=== PATIENT | male | born 1975 | race Caucasian/White ===

== ENCOUNTER 2017-01-21 00:28 | Emergency (ER) | payer OTHER ==
--- NOTE | 2017-01-21 03:13 | ED NURSING NOTES ---
Clinical Report - Nurses [facility] [address] [place] [address] 01/21/2017 0:29 Patient: LUIS CLINE TRIAGE Triage time 00:30 Jan 21 2017. Acuity: LEVEL 3. Chief Complaint: ABDOMINAL PAIN, NAUSEA and DIARRHEA. Alert. CELIA COMA SCORE: Celia Coma Scale: 15- eyes open spontaneously (4); best verbal response- oriented x 4 (5); best motor response- obeys commands (6). --00:46 Magno Higgins R.N. 00:34 01/21/17. BP: 168/110. HR: 80. RR: 16. O2 saturation: 97% on room air. Temp: 98.4 F (oral). Pain level now: 0/10. Additional comments: pain occurs every 12-17 minutes, then. --00:46 Magno Higgins R.N. Weight: 147.4 kg stated. Height/Length: 75 inches Per Patient. BMI: 40.6. --00:40 Magno Higgins R.N. Medications Lisinopril Oral 20 mg, 2x a day. --00:37 Magno Higgins R.N. Medication/allergy information source: the patient. --00:46 Magno Higgins R.N. Allergies No Known Drug Allergy. --00:37 Magno Higgins R.N. History Arrived by private vehicle. Historian: patient. Unaccompanied. Primary physician (none). ( Abdominal Pain associated with diarrhea. 3 days ago had a fever, cramping, diaphoresis, and chills.). Onset. (about 3 days ago after eating a Deli sandwich from [employer]). He has had fever, nausea, diarrhea and abdominal pain. Last oral intake by patient was (about 5 1/2 hours ago). 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 Symptoms did not improve after treatment. PAST MEDICAL HX: Immunizations: status is unknown. SOCIAL HX: Smoker- current status unknown (an occasional cigar). No alcohol use or drug use. No recent travel. ABUSE ASSESSMENT: No report of abuse. FALL RISK ASSESSMENT: Fall risk assessment completed. No fall risk identified. NUTRITIONAL RISK ASSESSMENT: The nutritional risk assessment revealed no deficiencies. FUNCTIONAL ASSESSMENT: Functional assessment: no impairments noted. LEARNING NEEDS ASSESSMENT: The learning needs assessment revealed no barriers. SKIN INTEGRITY ASSESSMENT: Skin integrity risk assessment completed. No skin integrity risk identified. --00:46 Magno Higgins R.N. PROBLEMS: Gastroesophageal Reflux Disease. Atypical Chest Pain. Hypertension. --00:40 Magno Higgins R.N. ADDITIONAL SURGERIES: Cholecystectomy. Knee Surgery. Leg bone spur removed. --00:40 Magno Higgins R.N. Interventions ID band on patient. To room. --00:46 Magno Higgins R.N. PHYSICAL ASSESSMENT Ambulatory to room. GENERAL / NEURO / PSYCH: Alert. Oriented X 4. HEENT: Mucous membranes are pink. RESPIRATORY: Respirations not labored. CVS: Cardiac rhythm: (RRR). Capillary refill less than 2 seconds. GI / : Abdomen soft and nontender. Bowel sounds within normal limits. SKIN: Skin is warm and dry. --00:47 Magno Higgins R.N. NURSING PROGRESS NOTES Patient gowned. Reassurance given. Patient identifiers checked. Call light placed in reach. Side rails up x 1. Bed placed in lowest position. Brakes of bed on. Patient ready for evaluation- chart flagged and ED physician notified. --00:47 Magno Higgins R.N. 00:36 01/21/2017 Site #1 started via IV in the right hand with an 20g angiocath, with aseptic technique and good blood return; one attempt. Blood drawn: rainbow set. Labeled in the presence of the patient and sent to the lab. Saline lock flushed with 10 mL saline. --00:51 Magno Higgins R.N. 01:17 01/21/17. Checked patient name, birthdate and medical record number: patient confirmed. Clean catch urine collected with return of teena-colored clear urine; odor is normal; sample sent to lab for urinalysis and culture. Specimen labeled in the presence of the patient. --01:47 Magno Higgins R.N. 01:32 01/21/2017 Started bag #1 1000 mL IV Fluids IV NS (Saline); at 999 mL/hr via site #1 via IV pump. Allergies verified and confirmed 5 rights. IV patency established. IV site checked: no pain, redness, or swelling. IV flushed thoroughly pre- and post-medication administration. --01:42 Magno Higgisn R.N. 01:37 01/21/2017 Zofran (Ondansetron HCl) IVP 4 mg given over 2 minute(s) via site #1. Allergies verified and confirmed 5 rights. IV patency established. IV site checked: no pain, redness, or swelling. IV flushed thoroughly pre- and post-medication administration. IVP given by RN. --01:42 Magno Higgins R.N. 01:38 01/21/2017 Bentyl (Dicyclomine HCl) PO Tablets 20 mg given. Allergies verified and confirmed 5 rights. --01:43 Magno Higgins R.N. 01:45 01/21/17. BP: 146/84. HR: 64. RR: 16. O2 saturation: 96% on room air. --01:48 Magno Higgins R.N. 02:37 01/21/2017 IV Fluids IV NS Discontinued: bag #1 completed. Total amount infused: 1000 mL. IV patency established. IV site checked: no pain, redness, or swelling. IV flushed thoroughly. --02:37 Vianca Gomes 03:30 01/21/17. BP: 150/86. HR: 60. RR: 16. O2 saturation: 99% on room air. Temp: 99 F. --03:36 Magno Higgins R.N. DISPOSITION / DISCHARGE 03:45 01/21/17. BP: 155/80. HR: 65. RR: 20. O2 saturation: 98% on room air. Temp: 98.6 F (oral). Pain level now: 0/10. --04:47 Vianca Gomes 03:45 01/21/2017 Site #1 removed upon discharge. Catheter intact. Bandaid applied. --04:47 Vianca Gomes 03:47 01/21/17. Condition at departure: stable. The goals identified in the patient's plan of care were met. No learning barriers present. Discharge instructions provided and reviewed with the patient. Reviewed medication(s) side effects, precautions, dosing and course information. Prescription(s) given to the patient. Reviewed need for increased fluid intake. Patient verbalized understanding. Written instructions provided in Khmer. ( Follow up with your PCP in two days. [facility] contact information provided. Increase fluids and rest until you feel better. Eat a soft bland diet until your stomach has settled. Return if your pain increases despite use of medications. Patient verbalized understanding and had no additional questions at this time.). The patient was discharged by the physician. He was discharged home and unaccompanied at time of discharge. He left the Emergency Department ambulatory and via private vehicle. Patient driving. FALL RISK ASSESSMENT: Fall risk assessment completed. No fall risk identified. --04:47 Vianca Gomes. Locked/Released at 01/21/2017 4:47 by Vianca Gomes,
--- NOTE | 2017-01-21 03:13 | ED ORDER SUMMARY ---
..... Patient: LUIS CLINE OrderSheet [facility] VisitID: [id number] [address] [place] [address] 41y, M Registration Date/Time: 01/21/2017 ORDER SHEET Weight: 147.4 kg (stated) Allergies: No Known Drug Allergy GENERAL ORDERS: CBC w Diff Urgent (01:01/21/2017 Felicia Malik) (Ack 1:23 ALawrence ER Tech1) (1:43 JRomanelli R.N.) CMP Urgent (01:01/21/2017 Felicia Malik) (Ack 1:23 ALawrence ER Tech1) (1:43 JRomanelli R.N.) UA-Culture if indicated Urgent (:01/21/2017 Felicia Malik) (Ack 1:23 ALawrence ER Tech1) (1:43 JRomanelli R.N.) Amylase Urgent (01:01/21/2017 Felicia Malik) (Ack 1:23 ALawrence ER Tech1) (1:43 JRomanelli R.N.) Lipase Urgent (01:01/21/2017 Felicia Mailk) (Ack 1:23 ALawrence ER Tech1) (1:43 JRomanelli R.N.) CT Abd/Pel wo Cont Urgent (01:54 01/21/2017 Felicia Malik) (Ack 1:55 ALawrence ER Tech1) (2:15 RFay) MEDICATION ORDERS: Bentyl PO 20 mg (NOW) (01:01/21/2017 Felicia Malik) (1:43 JRomanelli R.N.) IV FLUIDS: IV Saline Lock (00:50 01/21/2017 Greer R.N. verbal order read back to Felicia Malik) (0:51 omanelli R.N.) IV NS : initial bolus none -, then 1000 mL/hr for X1 (NOW) (01:01/21/2017 Felicia Malik) (1:42 omanelli R.N.) Zofran IV 4 mg (NOW) (01:01/21/2017 Felicia Malik) (1:42 Greer Boudreaux) ORDER SHEET NOTES: [Electronically signed by Juan Manuel Pappas Dr. (03:27 01/21/2017)] [Electronically signed by Vianca Gomes (04:47 01/21/2017)] [Electronically locked/signed by Vianca Gomes (04:47 01/21/2017)]
--- NOTE | 2017-01-21 03:13 | ED CLINICAL REPORT ---
Clinical Report - Physicians/Mid Levels [facility] [address] [place] [address] 01/21/2017 0:29 Patient: LUIS CLINE Time Seen: 00:35; initial patient contact. Arrived- By private vehicle. Historian- patient. HISTORY OF PRESENT ILLNESS Chief Complaint: ABDOMINAL PAIN. It is described as cramping. No radiation. It is described as generalized in location. This started about 2 days ago. The patient has had nausea, loss of appetite, vomiting and diarrhea. REVIEW OF SYSTEMS No constipation, difficulty with urination or fever. Last bowel movement: recently. He has had chills. All systems otherwise negative, except as recorded above. PAST HISTORY Hypertension. Cholecystectomy. Knee Surgery. Leg bone spur removed. SOCIAL HISTORY Never smoker. Occasional alcohol use. No drug use. ADDITIONAL NOTES The nursing notes have been reviewed. PHYSICAL EXAM Vital Signs: 01/21/2017 00:34 BP: 168/110. HR: 80. RR: 16. O2 saturation: 97%. Temp: 98.4 F. Pain level now: 0/10. Have been reviewed. Hypertensive. Heart rate normal. Respiratory rate normal. Temperature normal. Oxygen saturation normal. Appearance: Alert. Oriented X3. Appears to be in pain. Eyes: Eyes normal inspection. ENT: Dry mucous membranes present. CVS: Normal heart rate and rhythm. Heart sounds normal. Respiratory: No respiratory distress. Breath sounds normal. Abdomen: Soft. Moderate tenderness diffusely. No guarding, rebound tenderness or Yanes's, obturator or psoas sign present. Bowel sounds normal. No organomegaly. No mass. Back: Normal inspection. No CVA tenderness. Skin: Skin warm and dry. Normal skin color. No rash. Extremities: No lower extremity edema. Neuro: Oriented X 3. LABS, X-RAYS, AND EKG Abdominal CT: Mild to moderate colitis of the ascending and transverse colon. Study type: renal stone evaluation. Abdominal CT performed without contrast. The study was independently viewed by me, interpreted by the radiologist and discussed with the radiologist. Prior studies were not available for comparison. Laboratory Tests: UA-Culture if indicated: (DIMITRI: 01/21/2017 00:01) ( [facility] [place] 01/21/2017 01:21) Final results Test Result Flag Units (Reference) URINE COLOR YELLOW URINE APPEARANCE CLEAR URINE GLUCOSE NEGATIVE (NEGATIVE) URINE BILIRUBIN NEGATIVE (NEGATIVE) URINE KETONE NEGATIVE (NEGATIVE) URINE SPECIFIC GRAVITY >= 1.030 (1.010-1.030) URINE PH 6.0 (5.0-8.0) URINE PROTEIN TRACE (NEGATIVE) URINE UROBILINOGEN 0.2 EU/dL (0.2-1.0) URINE NITRITE NEGATIVE (NEGATIVE) URINE BLOOD 1+ (NEGATIVE) URINE LEUK ESTERASE NEGATIVE (NEGATIVE) URINE RBC 1-3 rbc/hpf (0-1) URINE WBC 0-1 wbc/hpf (0-1) URINE EPITHELIAL CELLS NONE SEEN EPI/hpf (0-5) URINE BACTERIA NONE SEEN (NONE SEEN) URINE COMMENT CULT NOT INDICATED CALCIUM OXALATE CRYSTALS: 5-10/HPFURINE CULTURES ARE SET-UP BASED ON THE FOLLOWING CRITERIA:POSITIVE NITRITEPOSITIVE LEUKOCYTE ESTERASEGREATER THAN 10 WHITE BLOOD CELLSMODERATE (2+) OR GREATER BACTERIA CBC w Diff: (DIMITRI: 01/21/2017 00:40) ( [facility] [place] 01/21/2017 01:11) Final results Test Result Flag Units (Reference) WHITE BLOOD COUNT 10.5 K/uL (4.5-11.5) RED BLOOD COUNT 4.76 M/uL (4.50-5.90) HEMOGLOBIN 14.3 gm/dL (13.5-17.5) HEMATOCRIT 42.2 % (41.0-53.0) MEAN CELL VOLUME 89 fL (80-100) MEAN CORPUSCULAR HGB 30 pg (26-34) MEAN CORPUSCULAR HGB CONC 34 g/dL (31-37) RED CELL DISTRIBUTION WIDTH 13.5 % (11.6-14.8) PLATELET COUNT 260 K/uL (150-400) NEUTROPHIL % 59.7 % (50-75) LYMPH % 27.7 % (25-40) MONO % 8.7 % (3-14) EOSINOPHIL % 3.6 % (0-4) BASOPHIL % 0.3 % (0-2) CMP: (DIMITRI: 01/21/2017 00:40) ( [facility] 01/21/2017 01:22) Final results Test Result Flag Units (Reference) GLUCOSE 95 mg/dL (70-110) BUN 13 mg/dL (7-18) CREATININE 0.9 mg/dL (0.6-1.3) Estimated GFR >60 mL/min Estimated GFR- >60 mL/min Note: Persistent reduction over 3 months in eGFR<60 mL/min/1.73 m2 defines CKD. Patients with eGFR values>=60 mL/min/1.73 m2 may also have CKD if evidence ofpersistent proteinuria. Additional information may be foundat www.kidney.org. SODIUM 135 L mmol/L (136-145) POTASSIUM 3.5 mmol/L (3.5-5.1) CHLORIDE 102 mmol/L (98-107) CARBON DIOXIDE 26 mmol/L (21-32) CALCIUM 8.4 L mg/dL (8.5-10.1) TOTAL PROTEIN 7.3 g/dL (6.4-8.2) ALBUMIN 3.5 g/dL (3.3-5.0) BILIRUBIN, TOTAL 0.5 mg/dL (0.0-1.0) ALKALINE PHOSPHATASE 54 U/L (46-116) AST (SGOT) 24 U/L (15-37) ALT (SGPT) 37 U/L (12-78) LIPASE 183 U/L (73-393) AMYLASE 38 U/L (25-115) . PROGRESS AND PROCEDURES Disposition: Discharged home in good and improved condition. Condition: good. CLINICAL IMPRESSION Acute infectious colitis. No ischemic colitis. INSTRUCTIONS Do not work today. Drink plenty of fluids until better. (Gatoraid/Poweraid). Your Current Medications: CONTINUE TAKING THE FOLLOWING MEDICATIONS: Lisinopril Oral : 20 mg 2x a day. Prescription Medications: Hydrocodone/APAP 5mg / 325mg: take 1 orally every 6 hours as needed for pain. Dispense ten (10). No refill. Zofran (orally disintegrating tablets) 4 mg: take 1 orally every 6 hours as needed for nausea and vomiting. Dispense ten (10). No refill. Substitution is permissible. Bentyl 20 mg tablets: take 1 orally every 6 hours as needed for abdominal cramps or abdominal discomfort. Dispense thirty (30). No refill. Substitution is permissible. Follow-up: Follow up with your doctor in about two days. Call for an appointment. Blood pressure screening was not performed during this visit because the patient has an active diagnosis of hypertension. (Electronically signed by Juan Manuel Pappas Dr. 01/21/2017 3:27)
--- NOTE | 2017-01-21 03:13 | ED ORDER SUMMARY ---
..... Patient: LUIS CLINE OrderSheet [facility] VisitID: [id number] [address] [place] [address] 41y, M Registration Date/Time: 01/21/2017 ORDER SHEET Weight: 147.4 kg (stated) Allergies: No Known Drug Allergy GENERAL ORDERS: CBC w Diff Urgent (01:01/21/2017 Felicia Malik) (Ack 1:23 ALawrence ER Tech1) (1:43 JRomanelli R.N.) CMP Urgent (01:01/21/2017 Felicia Malik) (Ack 1:23 ALawrence ER Tech1) (1:43 JRomanelli R.N.) UA-Culture if indicated Urgent (:01/21/2017 Felicia Malik) (Ack 1:23 ALawrence ER Tech1) (1:43 JRomanelli R.N.) Amylase Urgent (01:01/21/2017 Felicia Malik) (Ack 1:23 ALawrence ER Tech1) (1:43 JRomanelli R.N.) Lipase Urgent (01:01/21/2017 Felicia Malik) (Ack 1:23 ALawrence ER Tech1) (1:43 JRomanelli R.N.) CT Abd/Pel wo Cont Urgent (01:54 01/21/2017 Felicia Malik) (Ack 1:55 ALawrence ER Tech1) (2:15 RFay) MEDICATION ORDERS: Bentyl PO 20 mg (NOW) (01:01/21/2017 Felicia Malik) (1:43 JRomanelli R.N.) IV FLUIDS: IV Saline Lock (00:50 01/21/2017 Greer R.N. verbal order read back to Felicia Malik) (0:51 omanelli R.N.) IV NS : initial bolus none -, then 1000 mL/hr for X1 (NOW) (01:01/21/2017 Felicia Malik) (1:42 omanelli R.N.) Zofran IV 4 mg (NOW) (01:01/21/2017 Felicia Malik) (1:42 Greer Boudreaux) ORDER SHEET NOTES: [Electronically signed by Juan Manuel Pappas Dr. (03:27 01/21/2017)] [Electronically signed by Vianca Gomes (04:47 01/21/2017)] [Electronically locked/signed by Vianca Gomes (04:47 01/21/2017)]
--- NOTE | 2017-01-21 04:48 | ED DISCHARGE INSTRUCTIONS ---
Patient: LUIS CLINE General Instructions [facility] VisitID: [id number] [place] [address] 41y, M Registration Date/Time: 01/21/2017 Acute infectious colitis. No ischemic colitis. INSTRUCTIONS Do not work today. Drink plenty of fluids until better. (Gatoraid/Poweraid). Your Current Medications: CONTINUE TAKING THE FOLLOWING MEDICATIONS: Lisinopril Oral : 20 mg 2x a day. Prescription Medications: Hydrocodone/APAP 5mg / 325mg: take 1 orally every 6 hours as needed for pain. Dispense ten (10). No refill. Zofran (orally disintegrating tablets) 4 mg: take 1 orally every 6 hours as needed for nausea and vomiting. Dispense ten (10). No refill. Substitution is permissible. Bentyl 20 mg tablets: take 1 orally every 6 hours as needed for abdominal cramps or abdominal discomfort. Dispense thirty (30). No refill. Substitution is permissible. Follow-up: Follow up with your doctor in about two days. Call for an appointment. Blood pressure screening was not performed during this visit because the patient has an active diagnosis of hypertension. ADDITIONAL INFORMATION Hydrocodone Bitartrate, Acetaminophen Oral tablet What is this medicine? ACETAMINOPHEN; HYDROCODONE (a set a DENNY sunshine fen; magalie droe KOE done) is a pain reliever. It is used to treat mild to moderate pain. How should I use this medicine? Take this medicine by mouth. Swallow it with a full glass of water. Follow the directions on the prescription label. If the medicine upsets your stomach, take the medicine with food or milk. Do not take more than you are told to take. Talk to your interventional radiology rn regarding the use of this medicine in children. This medicine is not approved for use in children. What side effects may I notice from receiving this medicine? Side effects that you should report to your doctor or health child care center administrator as soon as possible: allergic reactions like skin rash, itching or hives, swelling of the face, lips, or tongue breathing problems confusion feeling faint or lightheaded, falls stomach pain yellowing of the eyes or skin Side effects that usually do not require medical attention (report to your doctor or health child care center administrator if they continue or are bothersome): nausea, vomiting stomach upset What may interact with this medicine? alcohol antihistamines isoniazid medicines for depression, anxiety, or psychotic disturbances medicines for sleep muscle relaxants naltrexone narcotic medicines (opiates) for pain phenobarbital ritonavir tramadol What if I miss a dose? If you miss a dose, take it as soon as you can. If it is almost time for your next dose, take only that dose. Do not take double or extra doses. Where should I keep my medicine? Keep out of the reach of children. This medicine can be abused. Keep your medicine in a safe place to protect it from theft. Do not share this medicine with anyone. Selling or giving away this medicine is dangerous and against the law. Store at room temperature between 15 and 30 degrees C (59 and 86 degrees F). Protect from light. Keep container tightly closed. Throw away any unused medicine after the expiration date. Discard unused medicine and used packaging carefully. Pets and children can be harmed if they find used or lost packages. What should I tell my health care provider before I take this medicine? They need to know if you have any of these conditions: brain tumor Crohn's disease, inflammatory bowel disease, or ulcerative colitis drink more than 3 alcohol-containing drinks per day drug abuse or addiction head injury heart or circulation problems kidney disease or problems going to the bathroom liver disease lung disease, asthma, or breathing problems an unusual or allergic reaction to acetaminophen, hydrocodone, other opioid analgesics, other medicines, foods, dyes, or preservatives or trying to get breast-feeding What should I watch for while using this medicine? Tell your doctor or health child care center administrator if your pain does not go away, if it gets worse, or if you have new or a different type of pain. You may develop tolerance to the medicine. Tolerance means that you will need a higher dose of the medicine for pain relief. Tolerance is normal and is expected if you take the medicine for a long time. Do not suddenly stop taking your medicine because you may develop a severe reaction. Your body becomes used to the medicine. This does NOT mean you are addicted. Addiction is a behavior related to getting and using a drug for a non-medical reason. If you have pain, you have a medical reason to take pain medicine. Your doctor will tell you how much medicine to take. If your doctor wants you to stop the medicine, the dose will be slowly lowered over time to avoid any side effects. You may get drowsy or dizzy when you first start taking the medicine or change doses. Do not drive, use machinery, or do anything that may be dangerous until you know how the medicine affects you. Stand or sit up slowly. There are different types of narcotic medicines (opiates) for pain. If you take more than one type at the same time, you may have more side effects. Give your health care provider a list of all medicines you use. Your doctor will tell you how much medicine to take. Do not take more medicine than directed. Call emergency for help if you have problems breathing. The medicine will cause constipation. Try to have a bowel movement at least every 2 to 3 days. If you do not have a bowel movement for 3 days, call your doctor or health child care center administrator. Too much acetaminophen can be very dangerous. Do not take Tylenol (acetaminophen) or medicines that contain acetaminophen with this medicine. Many non-prescription medicines contain acetaminophen. Always read the labels carefully. Ondansetron Oral disintegrating tablet What is this medicine? ONDANSETRON (on VICTORINO se jarrod) is used to treat nausea and vomiting caused by chemotherapy. It is also used to prevent or treat nausea and vomiting after surgery. How should I use this medicine? These tablets are made to dissolve in the mouth. Do not try to push the tablet through the foil backing. With dry hands, peel away the foil backing and gently remove the tablet. Place the tablet in the mouth and allow it to dissolve, then swallow. While you may take these tablets with water, it is not necessary to do so. Talk to your interventional radiology rn regarding the use of this medicine in children. Special care may be needed. What side effects may I notice from receiving this medicine? Side effects that you should report to your doctor or health child care center administrator as soon as possible: allergic reactions like skin rash, itching or hives, swelling of the face, lips, or tongue breathing problems dizziness fast or irregular heartbeat feeling faint or lightheaded, falls fever and chills swelling of the hands and feet tightness in the chest Side effects that usually do not require medical attention (report to your doctor or health child care center administrator if they continue or are bothersome): constipation or diarrhea headache What may interact with this medicine? Do not take this medicine with any of the following medications: -apomorphine -cisapride -dofetilide -dronedarone -pimozide -thioridazine -ziprasidone This medicine may also interact with the following medications: -carbamazepine -phenytoin -rifampicin -tramadol -other medicines that prolong the QT interval (cause an abnormal heart rhythm) What if I miss a dose? If you miss a dose, take it as soon as you can. If it is almost time for your next dose, take only that dose. Do not take double or extra doses. Where should I keep my medicine? Keep out of the reach of children. Store between 2 and 30 degrees C (36 and 86 degrees F). Throw away any unused medicine after the expiration date. What should I tell my health care provider before I take this medicine? They need to know if you have any of these conditions: heart disease history of irregular heartbeat liver disease low levels of magnesium or potassium in the blood an unusual or allergic reaction to ondansetron, granisetron, other medicines, foods, dyes, or preservatives or trying to get breast-feeding What should I watch for while using this medicine? Check with your doctor or health child care center administrator as soon as you can if you have any sign of an allergic reaction. Dicyclomine Hydrochloride Oral tablet What is this medicine? DICYCLOMINE (dye LLOYD lovett) is used to treat bowel problems including irritable bowel syndrome. How should I use this medicine? Take this medicine by mouth with a glass of water. Follow the directions on the prescription label. It is best to take this medicine on an empty stomach, 30 minutes to 1 hour before meals. Take your medicine at regular intervals. Do not take your medicine more often than directed. Talk to your interventional radiology rn regarding the use of this medicine in children. Special care may be needed. While this drug may be prescribed for children as young as 6 months of age for selected conditions, precautions do apply. Patients over 65 years old may have a stronger reaction and need a smaller dose. What side effects may I notice from receiving this medicine? Side effects that you should report to your doctor or health child care center administrator as soon as possible: agitation, nervousness, confusion difficulty swallowing dizziness, drowsiness fast or slow heartbeat hallucinations pain or difficulty passing urine Side effects that usually do not require medical attention (report to your doctor or health child care center administrator if they continue or are bothersome): constipation headache nausea or vomiting sexual difficulty What may interact with this medicine? amantadine antacids benztropine digoxin disopyramide medicines for allergies, colds and breathing difficulties medicines for alzheimer's disease medicines for anxiety or sleeping problems medicines for depression or psychotic disturbances medicines for diarrhea medicines for pain metoclopramide tegaserod What if I miss a dose? If you miss a dose, take it as soon as you can. If it is almost time for your next dose, take only that dose. Do not take double or extra doses. Where should I keep my medicine? Keep out of the reach of children. Store at room temperature below 30 degrees C (86 degrees F). Protect from light. Throw away any unused medicine after the expiration date. What should I tell my health care provider before I take this medicine? They need to know if you have any of these conditions: difficulty passing urine esophagus problems or heartburn glaucoma heart disease, or previous heart attack myasthenia gravis prostate trouble stomach infection, or obstruction ulcerative colitis an unusual or allergic reaction to dicyclomine, other medicines, foods, dyes, or preservatives or trying to get breast-feeding What should I watch for while using this medicine? You may get drowsy, dizzy, or have blurred vision. Do not drive, use machinery, or do anything that needs mental alertness until you know how this medicine affects you. To reduce the risk of dizzy or fainting spells, do not sit or stand up quickly, especially if you are an older patient. Alcohol can make you more drowsy, avoid alcoholic drinks. Stay out of bright light and wear sunglasses if this medicine makes your eyes more sensitive to light. Avoid extreme heat (hot tubs, saunas). This medicine can cause you to sweat less than normal. Your body temperature could increase to dangerous levels, which may lead to heat stroke. Antacids can stop this medicine from working. If you get an upset stomach and want to take an antacid, make sure there is an interval of at least 1 to 2 hours before or after you take this medicine. Your mouth may get dry. Chewing sugarless gum or sucking hard candy, and drinking plenty of water may help. Contact your doctor if the problem does not go away or is severe. You have been given the following additional information: Hydrocodone Bitartrate, Acetaminophen Oral tablet Ondansetron Oral disintegrating tablet Dicyclomine Hydrochloride Oral tablet Do not work today. (Electronically signed by Juan Manuel Pappas Dr. 01/21/2017 3:27)
--- NOTE | 2017-01-21 04:48 | ED MAR SUMMARY ---
..... Medication Administration Record [facility] [address] [place] [address] Patient: LUIS CLINE Visit ID: [id number] 41y, M Weight: 147.4 kg Height/Length: 75 in BMI: 40.6 ALLERGIES: No Known Drug Allergy Start 01:32 01/21/2017 Magno Higgins R.N., Stop 02:37 01/21/2017 Vianca Gomes, Medication Administered: IV NS (SALINE), Dose: IV Fluids, Rate: 999 mL/hr, Dispensed: 1000 mL bag, Site: #1 right hand. Medication Ordered: IV NS : initial bolus none -, then 1000 mL/hr for X1 (NOW). Given 01:37 01/21/2017 Magno Higgins R.N. Medication Administered: ZOFRAN [IVP] (ONDANSETRON HCL), Dose: 4 mg IVP over 2 minute(s), Site: #1 right hand. Medication Ordered: Zofran IV 4 mg (NOW). Given 01:38 01/21/2017 Magno Higgins RBensonN. Medication Administered: BENTYL [PO] (DICYCLOMINE HCL), Dose: 20 mg Tablets PO. Medication Ordered: Bentyl PO 20 mg (NOW).
--- NOTE | 2017-01-21 04:48 | ED MAR SUMMARY ---
..... Medication Administration Record [facility] [address] [place] [address] Patient: LUIS CLINE Visit ID: [id number] 41y, M Weight: 147.4 kg Height/Length: 75 in BMI: 40.6 ALLERGIES: No Known Drug Allergy Start 01:32 01/21/2017 Magno Higgins R.N., Stop 02:37 01/21/2017 Vianca Gomes, Medication Administered: IV NS (SALINE), Dose: IV Fluids, Rate: 999 mL/hr, Dispensed: 1000 mL bag, Site: #1 right hand. Medication Ordered: IV NS : initial bolus none -, then 1000 mL/hr for X1 (NOW). Given 01:37 01/21/2017 Magno Higgins R.N. Medication Administered: ZOFRAN [IVP] (ONDANSETRON HCL), Dose: 4 mg IVP over 2 minute(s), Site: #1 right hand. Medication Ordered: Zofran IV 4 mg (NOW). Given 01:38 01/21/2017 Magno Higgins RBensonN. Medication Administered: BENTYL [PO] (DICYCLOMINE HCL), Dose: 20 mg Tablets PO. Medication Ordered: Bentyl PO 20 mg (NOW).
--- NOTE | 2017-01-21 04:48 | ED MED RECONCILIATION SUMMARY ---
Patient: LUIS CLINE Medication Reconciliation Report [facility] VisitID: [id number] [address] [place] [address] 41y, M Registration Date/Time: 01/21/2017 Weight: 147.4 kg Height/Length: 75 in. BMI: 40.6 ALLERGIES: No Known Drug Allergy The patient's Home Medications are listed below: CONTINUE TAKING THE FOLLOWING MEDICATIONS: Lisinopril Oral 20 mg, 2x a day The source(s) of the original Home Medication information: patient The following Medications were given to the patient in the Emergency Department: IV NS IV Fluids bolus 0, then 999 mL/hr, administered: 01/21/2017 1:32:00 AM Zofran [IVP] IVP 4 mg, administered: 01/21/2017 1:37:00 AM Bentyl [PO] PO 20 mg, administered: 01/21/2017 1:38:00 AM The following Medications were prescribed to the patient: Hydrocodone/APAP 5mg / 325mg: take 1 orally every 6 hours as needed for pain. Dispense ten (10). No refill. -- Juan Manuel Pappas Dr. Zofran (orally disintegrating tablets) 4 mg: take 1 orally every 6 hours as needed for nausea and vomiting. Dispense ten (10). No refill. Substitution is permissible. -- Juan Manuel Pappas Dr. Bentyl 20 mg tablets: take 1 orally every 6 hours as needed for abdominal cramps or abdominal discomfort. Dispense thirty (30). No refill. Substitution is permissible. -- Juan Manuel Pappas Dr.
--- NOTE | 2017-01-21 04:48 | ED MED RECONCILIATION SUMMARY ---
Patient: LUIS CLINE Medication Reconciliation Report [facility] VisitID: [id number] [address] [place] [address] 41y, M Registration Date/Time: 01/21/2017 Weight: 147.4 kg Height/Length: 75 in. BMI: 40.6 ALLERGIES: No Known Drug Allergy The patient's Home Medications are listed below: CONTINUE TAKING THE FOLLOWING MEDICATIONS: Lisinopril Oral 20 mg, 2x a day The source(s) of the original Home Medication information: patient The following Medications were given to the patient in the Emergency Department: IV NS IV Fluids bolus 0, then 999 mL/hr, administered: 01/21/2017 1:32:00 AM Zofran [IVP] IVP 4 mg, administered: 01/21/2017 1:37:00 AM Bentyl [PO] PO 20 mg, administered: 01/21/2017 1:38:00 AM The following Medications were prescribed to the patient: Hydrocodone/APAP 5mg / 325mg: take 1 orally every 6 hours as needed for pain. Dispense ten (10). No refill. -- Juan Manuel Pappas Dr. Zofran (orally disintegrating tablets) 4 mg: take 1 orally every 6 hours as needed for nausea and vomiting. Dispense ten (10). No refill. Substitution is permissible. -- Juan Manuel Pappas Dr. Bentyl 20 mg tablets: take 1 orally every 6 hours as needed for abdominal cramps or abdominal discomfort. Dispense thirty (30). No refill. Substitution is permissible. -- Juan Manuel Pappas Dr.
--- NOTE | 2017-01-21 07:52 | DIAGNOSTIC IMAGING REPORT ---
PROCEDURE: CT ABDOMEN/PELVIS W/O CONTRAST INDICATION: FLANK PAIN TECHNIQUE: Axial CT images were obtained through the abdomen and pelvis without IV contrast. Coronal and sagittal reformations were created. COMPARISON: None. FINDINGS: There is a long segment of inflammation involving the distal ascending colon and proximal transverse colon including luminal decompression, marginal irregularity, moderate pericolonic fat stranding, and numerous nonenlarged mesenteric lymph nodes. No diverticula, free air, or focal fluid collection. There is mild retroperitoneal fascial thickening and a small amount of free fluid in the pelvis above the urinary bladder. Proximally, the cecum and appendix appear normal and distally, there is normal amount of stool in the colon and rectum. No evidence of small bowel obstruction. The gallbladder is surgically absent. Clear lung bases. Normal size heart. No hiatal hernia. The unenhanced appearance of the liver, adrenal glands, kidneys, pancreas and spleen is normal. The abdominal aorta is normal in its course and caliber with trace atherosclerosis. There are no suspicious calcifications, retroperitoneal adenopathy or masses. The stomach, upper bowel loops, and mesentery appears normal. Intact anterior abdominal wall. No free fluid, or inflammation. The unenhanced appearance of the prostate gland, seminal vesicles, urinary bladder, pelvic vessels, and pelvic bowel loops is normal. Normal appendix. No suspicious calcifications, free fluid, or mass. Intact osseous structures. IMPRESSION: 1. Colitis of the ascending and transverse colon, likely infectious or inflammatory. 2. No evidence of urinary calcification or obstructive uropathy. 3. Preliminary report by Dr. Bc Gallegos of [facility] radiology All CT scans at this facility use dose modulation, iterative reconstruction, and/or weight-based dosing when appropriate to reduce radiation dose to as low as reasonably achievable.
== END 2017-01-21 03:47 | disposition home or self-care (01) ==
LOC: ED SRH 00:28
DX: A09 Infectious gastroenteritis and colitis, unspecified (principal); I10 Essential (primary) hypertension
CPT/HCPCS: 90004; 90100; 92235; 92530; 95059